=== PATIENT | male | born 1960 | race Caucasian/White ===

== ENCOUNTER 2023-03-31 16:43 | Emergency (ER) | payer MEDICARE, MEDICAID, SELFPAY ==
--- NOTE | ~2023-03-31 | XR_ITS ---
EXAMINATION: XR knee LT min 4V DATE: 03/31/2023 17:23 INDICATION: Left knee pain. TECHNIQUE: 4 views of left knee were obtained. COMPARISON: None. FINDINGS: Bone alignment is normal. No fracture. There is diffuse osteopenia. There is mild tricompar tmental osteoarthritis characterized by tiny osteophytes. No joint space narrowing. No knee joint eff usion. IMPRESSION: 1. Mild left knee osteoarthritis. Reviewed, dictated and finalized at location E.
--- NOTE | ~2023-03-31 | XR_ITS ---
EXAMINATION: XR hip LT 2V w AP pelvis DATE: 03/31/2023 17:23 INDICATION: Left hip pain. TECHNIQUE: An anteroposterior view of the pelvis and 2 views of left hip were obtained. COMPARISON: None. FINDINGS: Bone alignment is normal. No fracture. There is mild lumbar spondylosis. There is mild oste oarthritis of the hips. IMPRESSION: 1. Mild osteoarthritis of the hips. Reviewed, dictated and finalized at location E.
[2023-03-31 16:56] VITALS: BP 150/73; PULSE 98; RESP 20; TEMP 36.4; O2SAT 100
--- NOTE | 2023-03-31 17:56 | ED.LOWEXIN ---
HPI - Extremity Injury (Lower) General Chief Complaint: Extremity Injury, Lower Stated Complaint: left hip hurts Time Seen by Provider: 03/31/23 17:46 Source: patient and RN notes reviewed Mode of arrival: ambulatory Limitations: no limitations History of Present Illness HPI Narrative: Patient presents today from [facility] complaining of a 2 week history of left hip and knee pain. States pain began after he twisted from a standing position in his left leg stayed stationary. Currently rates his pain 8/10 and has been taking Tylenol without relief. Pain increases with movement and weight-bearing. Denies numbness or tingling. Related Data Home Medications Medication Instructions Recorded Confirmed albuterol sulfate 90 mcg/actuation See Rx Instructions .Route .COMPLEX 03/31/23 03/31/23 aerosol inhaler aspirin 81 mg tablet 81 mg PO DAILY 03/31/23 03/31/23 benztropine 1 mg tablet 1 mg PO DAILY 03/31/23 03/31/23 bupropion HCl 150 mg 24 hr tablet, 150 mg PO DAILY 03/31/23 03/31/23 extended release ergocalciferol (vitamin D2) 1,250 1,250 mcg PO DAILY 03/31/23 03/31/23 mcg (50,000 unit) capsule (Vitamin D2) loratadine 10 mg tablet (Claritin) 10 mg PO DAILY 03/31/23 03/31/23 lorazepam 0.5 mg tablet 0.5 mg PO DAILY 03/31/23 03/31/23 metformin 500 mg tablet 500 mg PO DAILY 03/31/23 03/31/23 olanzapine 20 mg tablet 20 mg PO DAILY 03/31/23 03/31/23 omeprazole 20 mg capsule,delayed 20 mg PO DAILY 03/31/23 03/31/23 release paliperidone palm (3 month) 819 819 mg IM [id number] 03/31/23 03/31/23 mg/2.63 mL intramuscular syringe (Invega Trinza) pravastatin 20 mg tablet 20 mg PO DAILY 03/31/23 03/31/23 sertraline 100 mg tablet 100 mg PO DAILY 03/31/23 03/31/23 Allergies Allergy/AdvReac Type Severity Reaction Status Date / Time No Known Allergies Allergy Verified 03/31/23 17:39 Review of Systems Review of Systems: CONSTITUTIONAL: Denies body aches, fever, chills, or sweats. EYES: Denies visual changes, redness, or discharge. ENT: Denies rhinorrhea, congestion, sore throat, or otalgia. CARDIOVASCULAR: Denies chest pain, palpitations, or edema. RESPIRATORY: Denies cough or dyspnea. GASTROINTESTINAL: Denies abdominal pain, nausea, vomiting, or diarrhea. GENITOURINARY: Denies dysuria or hematuria. SKIN: Denies rash, itching, or wounds. MUSCULOSKELETAL: Denies back pain. + left hip and knee pain NEUROLOGIC: Denies headache, numbness, tingling, or weakness. PSYCH: Denies depression or anxiety. [facility] Past Medical History Medical History (Updated 03/31/23 @ 18:02 by Rachna Solares, APPEALS ANALYST, ) Schizophrenia Comments At time of signature, I have reviewed and agree with nursing past medical, surgical, social and family history unless otherwise noted. Please see nursing chart for further information. There is no relevant family history pertinent to the presenting complaint Exam Narrative: GENERAL: Well-appearing, well-nourished, and in no acute distress. HEAD: Normocephalic, atraumatic. EYES: EOMI. No redness or drainage. Conjunctivae normal. ENT: Mucous membranes pink and moist. NECK: Normal AROM. CHEST: No respiratory distress. EXTREMITIES: Left hip pain. Tenderness anteriorly and laterally. No edema, ecchymosis, erythema noted. No deformity noted. Patient has flexion of the hip against resistance with increased pain. Tenderness to the lateral and medial joint line of the knee. No edema noted. Pain significantly increases with internal rotation of the knee. Pain decreases with full flexion. Distal sensation intact. Capillary refill normal. SKIN: Warm, dry, no rash. Capillary refill normal. Normal skin turgor. NEURO: No focal deficits. Alert and oriented x3. Gait steady. PSYCH: Normal affect. No signs of depression or anxiety. Course Course Level of Care: Express Care Visit Vital Signs Vital signs: Vital Signs Temperature 97.5 F L 03/31/23 16:56 Pulse Rate 98 03/31/23 16:5
== END 2023-03-31 18:07 | disposition home or self-care (01) ==
PROVIDERS: Emergency Provider Nurse Practitioner
DX: M25.552 Pain in left hip (principal); M25.562 Pain in left knee; E78.00 Pure hypercholesterolemia, unspecified; J44.9 Chronic obstructive pulmonary disease, unspecified; K21.9 Gastro-esophageal reflux disease without esophagitis; E11.9 Type 2 diabetes mellitus without complications
CPT/HCPCS: 73502; 73564; 99204; G0463